=== PATIENT | female | born 1965 | race American Indian/Alaskan Native ===

== ENCOUNTER 2018-07-15 10:58 | Emergency (ER) | payer MEDICAID ==
[2018-07-15 11:31] VITALS: BP 126/78
--- NOTE | 2018-07-15 13:06 | Emergency Department Report ---
ED Upper Extremity Inj HPI - General Chief Complaint: Extremity Injury, Upper Stated Complaint: PAIN IN SHOULDER/RIGHT ARM NUMB Time Seen by Provider: 07/15/18 12:56 Source: patient Mode of arrival: Ambulatory Limitations: No Limitations - History of Present Illness Initial Comments: 53-year-old female presents to ED with complaints of right upper extremity pain. Patient states pain started 4 days ago. States pain is in right shoulder and radiates down the arm. Pain is worse with coughing or rightward rotation of neck. Patient reports intermittent associated paresthesias. Patient has history of CVA in the past. States has baseline weakness on the right side due to CVA. Patient ambulates with walker. MD Complaint: Injury to:: right, shoulder, arm -: days(s) (4) Improves With: immobilization Worsens With: movement of extremity, other (rotation of neck) Context: other (none) Associated Symptoms: numbness - Related Data Home Medications Medication Instructions Recorded Confirmed Last Taken buPROPion XL [Wellbutrin XL] 300 mg PO QAM 05/17/18 05/17/18 Unknown Previous Rx's Medication Instructions Recorded Last Taken Type Aspirin EC [Aspirin Enteric Coated 81 mg PO DAILY #30 tablet 05/19/18 Unknown Rx TAB] Lisinopril [Zestril TAB] 40 mg PO QDAY #30 tablet 05/19/18 Unknown Rx clonazePAM [Klonopin] 1 mg PO BID #30 tablet 05/19/18 Unknown Rx traMADol [Ultram 50 MG tab] 50 mg PO BID PRN tablet 05/19/18 Unknown Rx traZODone [Desyrel] 1 - 2 tab PO QHS #30 tablet 05/19/18 Unknown Rx traZODone [Desyrel] 50 mg PO QHS tablet 05/19/18 Unknown Rx Naproxen [Naprosyn] 500 mg PO BID PRN #20 tablet 07/15/18 Unknown Rx methOCARBAMOL [Robaxin TAB] 500 mg PO Q6H PRN #20 tablet 07/15/18 Unknown Rx predniSONE [Prednisone] 50 mg PO DAILY #5 tablet 07/15/18 Unknown Rx Allergies Allergy/AdvReac Type Severity Reaction Status Date / Time No Known Allergies Allergy Unverified 05/17/18 10:12 ED Review of Systems ROS: Stated complaint: PAIN IN SHOULDER/RIGHT ARM NUMB Other details as noted in HPI Comment: All other systems reviewed and negative Constitutional: chills, fever Cardiovascular: denies: chest pain Musculoskeletal: arthralgia, other (denies neck pain) Neurological: paresthesias ED Past Medical Hx - Past Medical History Hx Hypertension: Yes Hx CVA: Yes ([id number] weakness,uses a walker) Hx Congestive Heart Failure: No Hx Diabetes: No Hx Asthma: No Hx COPD: No - Surgical History Hx Open Heart Surgery: Yes (2 stents) - Social History Smoking Status: Current Every Day Smoker Substance Use Type: None - Medications Home Medications: Home Medications Medication Instructions Recorded Confirmed Last Taken Type buPROPion XL [Wellbutrin XL] 300 mg PO QAM 05/17/18 05/17/18 Unknown History Aspirin EC [Aspirin Enteric Coated 81 mg PO DAILY #30 tablet 05/19/18 Unknown Rx TAB] Lisinopril [Zestril TAB] 40 mg PO QDAY #30 tablet 05/19/18 Unknown Rx clonazePAM [Klonopin] 1 mg PO BID #30 tablet 05/19/18 Unknown Rx traMADol [Ultram 50 MG tab] 50 mg PO BID PRN tablet 05/19/18 Unknown Rx traZODone [Desyrel] 1 - 2 tab PO QHS #30 tablet 05/19/18 Unknown Rx traZODone [Desyrel] 50 mg PO QHS tablet 05/19/18 Unknown Rx Naproxen [Naprosyn] 500 mg PO BID PRN #20 tablet 07/15/18 Unknown Rx methOCARBAMOL [Robaxin TAB] 500 mg PO Q6H PRN #20 tablet 07/15/18 Unknown Rx predniSONE [Prednisone] 50 mg PO DAILY #5 tablet 07/15/18 Unknown Rx ED Physical Exam - General Limitations: No Limitations General appearance: alert, in no apparent distress - Head Head exam: Present: atraumatic, normocephalic - Eye Eye exam: Present: normal appearance - ENT ENT exam: Present: mucous membranes moist - Neck Neck exam: Present: normal inspection, full ROM. Absent: tenderness - Respiratory Respiratory exam: Present: normal lung sounds bilaterally. Absent: respiratory distress - Cardiovascular Cardiovascular Exam: Present: regular rate, normal rhythm - GI/Abdominal GI/Abdominal exam: Present: soft. 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; no sensory deficit to light touch; no swelling present) - Neurological Exam Neurological exam: Present: alert, altered, other (strength in RUE 5/5; no sensory deficit to light touch) - Psychiatric Psychiatric exam: Present: normal affect, normal mood - Skin Skin exam: Present: warm, dry, intact ED Course Vital Signs 07/15/18 11:27 Temperature 97.9 F Pulse Rate 84 Respiratory 16 Rate Blood Pressure 126/78 O2 Sat by Pulse 99 Oximetry ED Medical Decision Making - Medical Decision Making 53-year-old female with 4 day history of right shoulder pain with associated intermittent numbness and tingling. Patient reports pain is worse with coughing or rotation of neck. Likely cervical radiculopathy. Will try anti- inflammatory steroid and muscle relaxer therapy. Patient will be referred to orthopedist. Patient has been given return precautions. - Differential Diagnosis rotator cuff tendinitis; cervical radiculopathy; arthritis Critical care attestation.: If time is entered above; I have spent that time in minutes in the direct care of this critically ill patient, excluding procedure time. ED Disposition Clinical Impression: Cervical radiculopathy Disposition: DC-01 TO HOME OR SELFCARE Is pt being admited?: No Condition: Stable Instructions: Cervical Radiculopathy (ED) Prescriptions: methOCARBAMOL [Robaxin TAB] 500 mg PO Q6H PRN #20 tablet PRN Reason: Pain, Moderate (4-6) Naproxen [Naprosyn] 500 mg PO BID PRN #20 tablet PRN Reason: Pain, Moderate (4-6) predniSONE [Prednisone] 50 mg PO DAILY #5 tablet Referrals: PRIMARY CARE, [Primary Care Provider] - 3-5 Days CHRISTIAN BLANCHARD MD [Staff Physician] - 3-5 Days
== END 2018-07-15 13:21 | disposition home or self-care (01) ==
LOC: ED 10:58
DX: M54.12 Radiculopathy, cervical region (principal); M25.511 Pain in right shoulder; I10 Essential (primary) hypertension; F17.200 Nicotine dependence, unspecified, uncomplicated; Z79.82 Long term (current) use of aspirin
CPT/HCPCS: 93005; 93010; 99282

== ENCOUNTER 2019-05-19 09:58 | Emergency (ER) | payer MEDICAID ==
[2019-05-19 10:13] VITALS: BP 152/91
--- NOTE | 2019-05-19 10:30 | XRay Report ---
RIGHT HAND 3 VIEWS INDICATION: right hand pain and swelling. COMPARISON: No relevant prior imaging study available. FINDINGS: No acute, displaced fracture or dislocation is seen. There are no significant degenerative changes. N o significant soft tissue swelling. IMPRESSION: 1. No acute findings. Signer Name: Riley Pérez MD Signed: 05/19/2019 10:25 AM Workstation Name: [id number]
--- NOTE | 2019-05-19 11:07 | Emergency Department Report ---
HPI - General Chief Complaint: Extremity Injury, Upper Time Seen by Provider: 05/19/19 10:33 - HPI HPI: Pt is a very pleasant 54-year-old comes to the ER complaining of right hand swelling and tingling. She's had it off and on for 2 months. She states that she has a history of carpal tunnel. She was unable to get in with her primary care physician and does not see her neurologist until the end of the month. Patient is currently taking her psychiatric and blood pressure medicines but is unable to recall the name. Patient denies any chest pain shortness of breath or other symptoms. She denies any trauma. She does have full range of motion of the arm. ED Past Medical Hx - Past Medical History Previous Medical History?: Yes Hx Hypertension: Yes Hx CVA: Yes ([id number] weakness,uses a walker) Hx Congestive Heart Failure: No Hx Diabetes: No Hx Asthma: No Hx COPD: No Additional medical history: carpel tunnel; dysphonia; mental illness - Surgical History Past Surgical History?: Yes Hx Open Heart Surgery: Yes (2 stents) - Social History Smoking Status: Current Every Day Smoker Substance Use Type: None - Medications Home Medications: Home Medications Medication Instructions Recorded Confirmed Last Taken Type buPROPion XL [Wellbutrin XL] 300 mg PO QAM 05/17/18 05/17/18 Unknown History Aspirin EC 81 mg PO DAILY #30 tablet 05/19/18 Unknown Rx Lisinopril [Zestril TAB] 40 mg PO QDAY #30 tablet 05/19/18 Unknown Rx clonazePAM [Klonopin] 1 mg PO BID #30 tablet 05/19/18 Unknown Rx traZODone [Desyrel] 1 - 2 tab PO QHS #30 tablet 05/19/18 Unknown Rx methOCARBAMOL [Robaxin TAB] 500 mg PO Q6H PRN #20 tablet 07/15/18 Unknown Rx predniSONE [Deltasone] 20 mg PO DAILY #5 tablet 05/19/19 Unknown Rx ED Review of Systems ROS: Stated complaint: RT SIDE HAND SWELLING/PAIN Other details as noted in HPI Comment: All other systems reviewed and negative Physical Exam - Physical Exam Vital Signs: Vital Signs 05/19/19 10:02 Temperature 98.2 F Pulse Rate 102 H Respiratory 15 Rate Blood Pressure 152/91 [Left] O2 Sat by Pulse 100 Oximetry Physical Exam: WDWN patient in NAD VS per RN flow sheet Alert and oriented to person, place and time. neuro intact. no pronator drift. CN intact. S1-S2. No S3 or S4. HR 100 on exam. No systolic or diastolic murmur. No JVD. No pitting edema. Lungs clear to auscultation bilaterally anteriorly and posteriorly. Abdomen soft nontender bowel soundsx4 Moves all extremities well. full ROM of hand and wrist. pos tinels; Mood and affect appropriate. ED Course Vital Signs 05/19/19 10:02 Temperature 98.2 F Pulse Rate 102 H Respiratory 15 Rate Blood Pressure 152/91 [Left] O2 Sat by Pulse 100 Oximetry ED Medical Decision Making - Radiology Data Radiology results: report reviewed, image reviewed - Medical Decision Making no trauma hx carpel tunnel xray neg has neuro appnt end of month full rom and neurovasc intact. Vital Signs 05/19/19 10:02 Temperature 98.2 F Pulse Rate 102 H Respiratory 15 Rate Blood Pressure 152/91 [Left] O2 Sat by Pulse 100 Oximetry - Differential Diagnosis ro fx Critical care attestation.: If time is entered above; I have spent that time in minutes in the direct care of this critically ill patient, excluding procedure time. ED Disposition Clinical Impression: Acute carpal tunnel syndrome of right wrist Disposition: DC- TO HOME OR SELFCARE Is pt being admited?: No Does the pt Need Aspirin: No Condition: Stable Instructions: Tendinitis (ED) Additional Instructions: DIET TOLERATED MEDS ORDERED TODAY IN ER FOLLOW INSTRUCTIONS ON THE BOTTLE FOLLOW UP PCP WITHIN 48 HOURS TO ENSURE YOU ARE GETTING BETTER ACTIVITY TOLERATED MOTRIN OR TYLENOL FOR PAIN OR FEVER RETURN TO THE ER FOR WORSENING SYMPTOMS NOT RELIEVED BY YOUR MEDICATIONS. follow up with your neuro MD as you have planned I've also given you referral to a ortho MD Referrals: CHRISTIAN BLANCHARD MD [Staff Physician] - 3-5 Days Time of Disposition: 11:05
== END 2019-05-19 11:21 | disposition home or self-care (01) ==
LOC: ED 09:58
DX: G56.01 Carpal tunnel syndrome, right upper limb (principal); I10 Essential (primary) hypertension; F17.200 Nicotine dependence, unspecified, uncomplicated; Z86.73 Personal history of transient ischemic attack (TIA), and cerebral infarction without residual deficits; Z95.1 Presence of aortocoronary bypass graft; Z79.82 Long term (current) use of aspirin; Z79.899 Other long term (current) drug therapy
CPT/HCPCS: 99283

== ENCOUNTER 2020-01-31 21:48 | Emergency (ER) | payer MEDICAID ==
--- NOTE | 2020-01-31 22:38 | XRay Report ---
CHEST 2 VIEWS INDICATION / CLINICAL INFORMATION: Cough for 3 weeks. COMPARISON: 05/17/18. FINDINGS: SUPPORT DEVICES: None. HEART / MEDIASTINUM: Median sternotomy. Normal heart size and pulmonary vasculature. LUNGS / PLEURA: No significant pulmonary or pleural abnormality. No pneumothorax. ADDITIONAL FINDINGS: No significant additional findings. IMPRESSION: No acute abnormality or significant change. Signer Name: Gato Rojas MD Signed: 01/31/2020 10:33 PM Workstation Name: [id number]
[2020-02-01 01:58] VITALS: BP 150/65
[2020-02-01] MEDS ORDERED: KETOROLAC 60 MG/2 ML INJ IM ONE (02:00)
--- NOTE | 2020-02-01 02:00 | Emergency Department Report ---
HPI - General Chief Complaint: Upper Respiratory Infection Time Seen by Provider: 02/01/20 01:18 - HPI HPI: This is a 54-year-old female here report that she is having coughing for 3 weeks. She said she went to her primary care doctor and she was told that she was coughing because of lisinopril. She says she was taken off lisinopril and started on another medication cough is getting better but because she was coughing so much she is having rib discomfort with coughing. Denies any chest pain or shortness of breath. Denies any fever or chills. Denies any nausea vomiting or diarrhea. Denies any abdominal pain. Denies any contact with individuals with cough, fever, congestion, diarrhea. Pain is 5 out of 10 and associated with coughing. She said her coughing has improved but because she was coughing so much now when she coughs it hurts. Patient has a history of cardiac stent 18 years ago. She said her pain is not related to her heart and she does not want to be checked. ED Past Medical Hx - Past Medical History Previous Medical History?: Yes Hx Hypertension: Yes Hx CVA: Yes ([id number] weakness,uses a walker) Hx Congestive Heart Failure: No Hx Diabetes: No Hx Asthma: No Hx COPD: No Additional medical history: carpel tunnel; dysphonia; mental illness - Surgical History Past Surgical History?: Yes Hx Open Heart Surgery: Yes (2 stents) - Family History Family history: hypertension - Social History Smoking Status: Current Some Day Smoker Substance Use Type: None - Medications Home Medications: Home Medications Medication Instructions Recorded Confirmed Last Taken Type buPROPion XL [Wellbutrin XL] 300 mg PO QAM 05/17/18 05/17/18 Unknown History Aspirin EC [Halfprin EC] 81 mg PO DAILY #30 tablet 05/19/18 Unknown Rx clonazePAM [Klonopin] 1 mg PO BID #30 tablet 05/19/18 Unknown Rx lisinopriL [Zestril TAB] 40 mg PO QDAY #30 tablet 05/19/18 Unknown Rx traZODone [Desyrel] 1 - 2 tab PO QHS #30 tablet 05/19/18 Unknown Rx methOCARBAMOL [Robaxin TAB] 500 mg PO Q6H PRN #20 tablet 07/15/18 Unknown Rx predniSONE [Deltasone] 20 mg PO DAILY #5 tablet 05/19/19 Unknown Rx Benzonatate [Tessalon Perles] 100 mg PO Q8HR PRN #12 capsule 02/01/20 Unknown Rx Cetirizine HCl [ZyrTEC] 10 mg PO QAM 10 Days #10 capsule 02/01/20 Unknown Rx ED Review of Systems ROS: Stated complaint: COUGH 3WKS Other details as noted in HPI Constitutional: denies: chills, fever, weakness ENT: denies: ear pain, throat pain, congestion Respiratory: cough. denies: shortness of breath, SOB with exertion, SOB at rest, stridor, wheezing Cardiovascular: other (Pain around rib cage with coughing). denies: palpitations, dyspnea on exertion, edema, syncope Gastrointestinal: denies: abdominal pain, nausea, vomiting Musculoskeletal: arthralgia (Rib). denies: back pain, joint swelling, myalgia Skin: denies: rash Neurological: denies: headache, numbness, paresthesias, abnormal gait, vertigo Physical Exam - Physical Exam Vital Signs: Vital Signs 01/31/20 02/01/20 21:52 01:56 Temperature 98.5 F 98.3 F Pulse Rate 54 L 54 L Respiratory 20 18 Rate Blood Pressure 151/78 150/65 O2 Sat by Pulse 98 100 Oximetry General: This is a 54-year-old female well-nourished well-developed in no acute distress. Physical Exam: Head: Normocephalic atraumatic. Mouth: Oral mucosa moist, tongue is normal, uvula is midline, no WAREHOUSE ASSISTANT or drooling, oral airways patent and uvula is Nose: Nasal mucosa pale and boggy with clear drainage. Ears: Bilateral middle ear with effusion, bilateral EAC normal exam. No tympanic membrane tenderness. Lungs: Clear to auscultated bilaterally, no rhonchi wheezes or rales. No use of accessory muscles. Neck: Supple, no tracheal deviation. No C-spine tenderness and full range of motion. Negative stridor and negative crepitus CV: S1, S2. Regular rate Abdomen: Nontender to palpate in all quadrants, normal bowel sounds in all quadrants. No distention. Eyes: Bilateral pupils equal and reactive to light, conjunctival injection or icterus. Bilateral EOM intact and normal accommodation. Lids are normal. No swelling noted. Skin: Clean dry and intact, no rash no lesions Extremity: No cce. + 2 pulses in all extremities, no neurovascular compromise. Mood: Normal mood and behavior Neurological: No focal neurological deficit. She is able to ambulate without any difficulties. Normal gait, speech is clear fluid, she is alert and oriented 3, no motor or sensory deficits. Normal strength all extremities and normal reflexes. Negative Romberg and negative pronator drift Back: Nontender to palpate to vertebral spine from C-spine to L-spine including sacral area. No paraspinal tenderness and no CVA tenderness. No rash noted. ED Course Vital Signs 01/31/20 02/01/20 21:52 01:56 Temperature 98.5 F 98.3 F Pulse Rate 54 L 54 L Respiratory 20 18 Rate Blood Pressure 151/78 150/65 O2 Sat by Pulse 98 100 Oximetry - Reevaluation(s) Reevaluation #1: 02/01/20 02:19 Patient given Toradol 60 mg IM for pain with relief. Patient refused cardiac work-up and said is not her heart. She refuses EKG and lab work. Please see signed AMA ED Medical Decision Making - Radiology Data Radiology results: report reviewed Chest x-ray dictated by radiologist and report reviewed by myself. Please see details. Findings [facility] [address] [place] [address] XRay Report Signed Patient: JANNY HALL MR#: [id number] : 1965 Acct:[id number] Age/Sex: 54 / F ADM Date: 01/31/20 Loc: ED Attending Dr: Ordering Physician: IRINEO REYNA Date of Service: 01/31/20 Procedure(s): XR chest routine 2V Accession Number(s): [id number] cc: IRINEO REYNA Fluoro Time In Minutes: CHEST 2 VIEWS INDICATION / CLINICAL INFORMATION: Cough for 3 weeks. COMPARISON: 05/17/18. FINDINGS: SUPPORT DEVICES: None. HEART / MEDIASTINUM: Median sternotomy. Normal heart size and pulmonary vasculature. LUNGS / PLEURA: No significant pulmonary or pleural abnormality. No pneumothorax. ADDITIONAL FINDINGS: No significant additional findings. IMPRESSION: No acute abnormality or significant change. Signer Name: Gato Rojas MD Signed: 01/31/2020 10:33 PM Workstation Name: [id number] Transcribed By: RT Dictated By: Gato Rojas MD Electronically Authenticated By: Gato Rojas MD Signed Date/Time: 01/31/202232 DD/ 31 TD/TT: - Medical Decision Making 54-year-old female here report that she has been having cough for 3 weeks and went to her primary care and her primary care told her that it was related to lisinopril which was switched and she said her cough is improved but because she has been coughing so much she is having rib pain. Patient has a history of cardiac stents and CVA. She said her stent was placed 18 years ago and pain is not related to her heart. I wanted to do EKG and cardiac labs but patient refused. Please see signed AMA in chart. Chest x-ray two-view dictated by radiologist and report reviewed by myself with no acute findings. Patient with signs of allergic rhinitis and says she has allergies. Her lungs are clear and vital signs are stable she is afebrile. Patient had no contact with individuals that has upper respiratory with cough and congestion, fever and or chills or diarrhea. She was given Toradol IM in emergency room which relieved her pain. I discussed her diagnosis and treatment plan and I discussed with patient that she needs to follow-up with her primary care on 02/02/2020 and also cardiology to call on Sunday to schedule an appointment and she voiced understanding. Patient discharged home with prescription for Zyrtec and Tessalon Perle - Differential Diagnosis ACS, PNA, bronchitis, viral syndrome, allergic rhinitis Critical care attestation.: If time is entered above; I have spent that time in minutes in the direct care of this critically ill patient, excluding procedure time. ED Disposition Clinical Impression: Cough in adult Allergic rhinitis Qualifiers: Allergic rhinitis trigger: unspecified Allergic rhinitis seasonality: unspecified Qualified Code(s): J30.9 - Allergic rhinitis, unspecified Disposition: DC-01 TO HOME OR SELFCARE Is pt being admited?: No Does the pt Need Aspirin: No Condition: Stable Instructions: Allergic Rhinitis (ED), Acute Cough (ED) Additional Instructions: Please follow-up with your primary care physician and also see referral to die mechanic. If your condition worsens, return to the emergency room. Take medication as prescribed See discharge instruction given on coronavirus signs and symptoms. Referrals: PHIL NGUYEN MD [Primary Care Provider] - 02/02/20 STERLING WALDRON MD [Staff Physician] - 02/02/20 Forms: AMA Form
== END 2020-02-01 02:40 | disposition home or self-care (01) ==
LOC: ED 21:48
DX: R05 Cough (principal); R07.81 Pleurodynia; J30.9 Allergic rhinitis, unspecified; I10 Essential (primary) hypertension; R49.0 Dysphonia; F17.200 Nicotine dependence, unspecified, uncomplicated; G56.00 Carpal tunnel syndrome, unspecified upper limb; Z86.73 Personal history of transient ischemic attack (TIA), and cerebral infarction without residual deficits; Z98.890 Other specified postprocedural states; Z79.899 Other long term (current) drug therapy
CPT/HCPCS: 71046; 96372; 99283; J1885

== ENCOUNTER 2020-09-10 12:32 | Emergency (ER) | payer MEDICAID ==
[2020-09-10] MEDS ORDERED: MORPHINE 4 MG/1 ML INJ IV ONE (13:52)
[2020-09-10] MEDS ORDERED: ONDANSETRON 4 MG/2 ML INJ IV ONE (13:52)
[2020-09-10] MEDS ORDERED: MECLIZINE 25 MG TAB PO ONE (13:54)
--- NOTE | 2020-09-10 13:55 | Cat Scan Report ---
CT HEAD WITHOUT CONTRAST INDICATION / CLINICAL INFORMATION: Dizziness and headache. TECHNIQUE: Axial imaging performed from the skull apex through the skull base without the use of cont rast. Sagittal and coronal reformatted images. All CT scans at this location are performed using CT dose reduction for ALARA by means of automated exposure control. COMPARISON: None available. FINDINGS: CEREBRAL PARENCHYMA: No acute parenchymal abnormality or territorial infarct. Chronic focal infarct i n the left subinsular region measures 1.2 x 0.4 cm. The remaining brain parenchyma demonstrates prema l density. HEMORRHAGE: None. EXTRA-AXIAL SPACES: Normal in size and morphology for the patient's age. VENTRICULAR SYSTEM: Normal in size and morphology for the patient's age. MIDLINE SHIFT OR HERNIATION: None. CEREBELLUM / BRAINSTEM: No significant abnormality. CALVARIUM: No significant abnormality. ORBITS: Normal as visualized. PARANASAL SINUSES / MASTOID AIR CELLS: Large mucous retention cyst is identified in the right maxilla ry sinus. The remaining sinuses are clear. SOFT TISSUES of HEAD: No significant abnormality. ADDITIONAL FINDINGS: None. IMPRESSION: No acute intracranial abnormality. Signer Name: Jony Cardoso Jr, MD Signed: 09/10/2020 1:50 PM Workstation Name: [id number]
[2020-09-10] MEDS ORDERED: KETOROLAC 30 MG/1 ML INJ IV ONE (13:58)
--- NOTE | 2020-09-10 13:59 | Emergency Department Report ---
ED Headache HPI - General Chief Complaint: Dizziness Stated Complaint: DIZZY/HEAD/HTN Time Seen by Provider: 09/10/20 13:38 Source: patient Exam Limitations: no limitations - History of Present Illness Initial Comments: 55-year old female with a past medical history of CVA with residual right-sided walker, diabetes, mental illness, CAD with stent x 2 presents to the hospital wi th complaints of headache and dizziness since yesterday. Symptoms worsen upon waking this morning. She describes it as a room spinning sensation and thinks her symptoms are secondary to high blood pressure. At one time she reports a blood pressure of 181/102 with associated blurred vision and worsening frontal headache. She does complain of light sensitivity. She denies nausea, vomiting, neck stiffness, worsening of focal weakness, or focal numbness. Patient is compliant with her BP medications and aspirin with last dose this morning. She denies history of headache syndromes or head trauma. Allergies/Adverse Reactions: Allergies No Known Allergies Allergy (Unverified 05/17/18 10:12) Home Medications: Ambulatory Orders buPROPion XL [Wellbutrin XL] 300 mg PO QAM 05/17/18 Aspirin EC [Halfprin EC] 81 mg PO DAILY #30 tablet 05/19/18 clonazePAM [Klonopin] 1 mg PO BID #30 tablet 05/19/18 lisinopriL [Zestril TAB] 40 mg PO QDAY #30 tablet 05/19/18 traZODone [Desyrel] 1 - 2 tab PO QHS #30 tablet 05/19/18 methOCARBAMOL [Robaxin TAB] 500 mg PO Q6H PRN #20 tablet 07/15/18 predniSONE [Deltasone] 20 mg PO DAILY #5 tablet 05/19/19 Benzonatate [Tessalon Perles] 100 mg PO Q8HR PRN #12 capsule 02/01/20 Cetirizine HCl [ZyrTEC] 10 mg PO QAM 10 Days #10 capsule 02/01/20 Butalb/Acetamin/Caff 50-325-40 [Fioricet 50-325-40] 1 tab PO Q6HR PRN #15 tab 09/10/20 Ibuprofen [Motrin] 800 mg PO Q8HR PRN #20 tablet 09/10/20 Meclizine [Antivert] 25 mg PO TID PRN #20 tablet 09/10/20 Ondansetron [Zofran Odt] 4 mg PO Q8HR #14 tab.rapdis 09/10/20 ED Review of Systems ROS: Stated complaint: DIZZY/HEAD/HTN Other details as noted in HPI Comment: All other systems reviewed and negative ED Past Medical Hx - Past Medical History Hx Hypertension: Yes Hx CVA: Yes ([id number],uses a walker) Hx Congestive Heart Failure: No Hx Diabetes: No Hx Asthma: No Hx COPD: No Additional medical history: carpel tunnel; dysphonia; mental illness - Surgical History Hx Open Heart Surgery: Yes (2 stents) - Social History Smoking Status: Never Smoker - Medications Home Medications: Home Medications Medication Instructions Recorded Confirmed Last Taken Type buPROPion XL [Wellbutrin XL] 300 mg PO QAM 05/17/18 05/17/18 Unknown History Aspirin EC [Halfprin EC] 81 mg PO DAILY #30 tablet 05/19/18 Unknown Rx clonazePAM [Klonopin] 1 mg PO BID #30 tablet 05/19/18 Unknown Rx lisinopriL [Zestril TAB] 40 mg PO QDAY #30 tablet 05/19/18 Unknown Rx traZODone [Desyrel] 1 - 2 tab PO QHS #30 tablet 05/19/18 Unknown Rx methOCARBAMOL [Robaxin TAB] 500 mg PO Q6H PRN #20 tablet 07/15/18 Unknown Rx predniSONE [Deltasone] 20 mg PO DAILY #5 tablet 05/19/19 Unknown Rx Benzonatate [Tessalon Perles] 100 mg PO Q8HR PRN #12 capsule 02/01/20 Unknown Rx Cetirizine HCl [ZyrTEC] 10 mg PO QAM 10 Days #10 capsule 02/01/20 Unknown Rx Butalb/Acetamin/Caff 50-325-40 1 tab PO Q6HR PRN #15 tab 09/10/20 Unknown Rx [Fioricet 50-325-40] Ibuprofen [Motrin] 800 mg PO Q8HR PRN #20 tablet 09/10/20 Unknown Rx Meclizine [Antivert] 25 mg PO TID PRN #20 tablet 09/10/20 Unknown Rx Ondansetron [Zofran Odt] 4 mg PO Q8HR #14 tab.rapdis 09/10/20 Unknown Rx ED Physical Exam - General Limitations: No Limitations - Other Other exam information: General: No acute distress Head: Atraumatic Eyes: normal appearance ENT: Moist mucous membranes Neck: Normal appearance, no midline tenderness Chest: Clear to auscultation bilaterally CV: Regular rate and rhythm Abdomen: Soft, normal bowel sounds, nontender, nondistended, no rebound or guarding Back: Normal inspection Extremity: Normal inspection, full range of motion Neuro: Alert O x 3, no facial asymmetry, speech clear, 4+/5 right upper and right lower extremity strength, 5/5 left upper and lower extremity strength, [id number] function intact Psych: Appropriate behavior Skin: No rash ED Course Vital Signs 09/10/20 09/10/20 09/10/20 12:48 13:00 15:30 Temperature 98.2 F Pulse Rate 70 60 56 L Respiratory 18 18 18 Rate Blood Pressure 151/78 Blood Pressure 152/71 150/75 [Left] O2 Sat by Pulse 100 99 97 Oximetry ED Medical Decision Making - Lab Data Result diagrams: 09/10/20 13:59 09/10/20 13:59 Lab Results 09/10/20 09/10/20 Range/Units 13:59 13:59 WBC 6.6 (4.5-11.0) K/mm3 RBC 4.70 (3.65-5.03) M/mm3 Hgb 14.9 H (10.1-14.3) gm/dl Hct 44.9 H (30.3-42.9) % MCV 95 (79-97) fl MCH 32 (28-32) pg MCHC 33 (30-34) % RDW 13.7 (13.2-15.2) % Plt Count 218 (140-440) K/mm3 Lymph % (Auto) 46.1 H (13.4-35.0) % [place] % (Auto) 6.3 (0.0-7.3) % Eos % (Auto) 1.8 (0.0-4.3) % Baso % (Auto) 1.1 (0.0-1.8) % Lymph # (Auto) 3.0 (1.2-5.4) K/mm3 [place] # (Auto) 0.4 (0.0-0.8) K/mm3 Eos # (Auto) 0.1 (0.0-0.4) K/mm3 Baso # (Auto) 0.1 (0.0-0.1) K/mm3 Seg Neutrophils % 44.7 (40.0-70.0) % Seg Neutrophils # 2.9 (1.8-7.7) K/mm3 Sodium 140 (137-145) mmol/L Potassium 4.3 (3.6-5.0) mmol/L Chloride 104.6 (98-107) mmol/L Carbon Dioxide 25 (22-30) mmol/L Anion Gap 15 mmol/L BUN 8 (7-17) mg/dL Creatinine 0.5 L (0.6-1.2) mg/dL Estimated GFR > 60 ml/min BUN/Creatinine Ratio 16 % Glucose 84 (65-100) mg/dL Calcium 10.6 H (8.4-10.2) mg/dL Magnesium 2.00 (1.7-2.3) mg/dL Total Bilirubin 0.50 (0.1-1.2) mg/dL AST 18 (5-40) units/L ALT 18 (7-56) units/L Alkaline Phosphatase 133 H (35-129) units/L Troponin T < 0.010 (0.00-0.029) ng/mL Total Protein 7.5 (6.3-8.2) g/dL Albumin 4.3 (3.9-5) g/dL Albumin/Globulin Ratio 1.3 % - EKG Data -: EKG Interpreted by Ms EKG shows normal: sinus rhythm, ST-T waves (ant lat t inv) Rate: normal - EKG Data When compared to previous EKG there are: no significant change - Radiology Data Radiology results: report reviewed CT HEAD WITHOUT CONTRAST INDICATION / CLINICAL INFORMATION: Dizziness and headache. TECHNIQUE: Axial imaging performed from the skull apex through the skull base without the use of contrast. Sagittal and coronal reformatted images. All CT scans at this location are performed using CT dose reduction for ALARA by means of automated exposure control. COMPARISON: None available. FINDINGS: CEREBRAL PARENCHYMA: No acute parenchymal abnormality or territorial infarct. Chronic focal infarct in the left subinsular region measures 1.2 x 0.4 cm. The remaining brain parenchyma demonstrates normal density. HEMORRHAGE: None. EXTRA-AXIAL SPACES: Normal in size and morphology for the patient's age. VENTRICULAR SYSTEM: Normal in size and morphology for the patient's age. MIDLINE SHIFT OR HERNIATION: None. CEREBELLUM / BRAINSTEM: No significant abnormality. CALVARIUM: No significant abnormality. ORBITS: Normal as visualized. PARANASAL SINUSES / MASTOID AIR CELLS: Large mucous retention cyst is identified in the right maxillary sinus. The remaining sinuses are clear. SOFT TISSUES of HEAD: No significant abnormality. ADDITIONAL FINDINGS: None. IMPRESSION: No acute intracranial abnormality. - Medical Decision Making Patient treated with morphine, Toradol, Zofran, and meclizine in the ED with improvement. CT head and labs unremarkable. Blood pressure mildly elevated but not significant. No signs of hypertensive emergency. No new neurologic deficit identified on exam. Patient be discharged with medications for headache, nausea, and possible vertigo Critical Care Time: No Critical care attestation.: If time is entered above; I have spent that time in minutes in the direct care of this critically ill patient, excluding procedure time. ED Disposition Clinical Impression: Dizziness, Headache, HTN (hypertension) Disposition: TO HOME OR SELFCARE Is pt being admited?: No Does the pt Need Aspirin: No Condition: Stable Instructions: Hypertension (ED), Dizziness, Managing Your Hypertension Additional Instructions: Take the medication as prescribed. Follow-up with your doctor or doctor/clinic provided. Return if symptoms worsen as indicated by your discharge instructions. Prescriptions: Meclizine [Antivert] 25 mg PO TID PRN #20 tablet PRN Reason: Vertigo Butalb/Acetamin/Caff 50-325-40 [Fioricet 50-325-40] 1 tab PO Q6HR PRN #15 tab PRN Reason: Headache Ibuprofen [Motrin] 800 mg PO Q8HR PRN #20 tablet PRN Reason: Pain , Severe (7-10) Ondansetron [Zofran Odt] 4 mg PO Q8HR #14 tab.rapdis Referrals: PRIMARY CARE, [Primary Care Provider] - 3-5 Days BETH DENT MD [Staff Physician] - 3-5 Days (Neurologist) Time of Disposition: 16:07
[2020-09-10 14:49] LABS: Basophils # (Auto) 0.1 K/mm3 (0.0-0.1); Basophils % (Auto) 1.1 % (0.0-1.8); Eosinophils # (Auto) 0.1 K/mm3 (0.0-0.4); Eosinophils % (Auto) 1.8 % (0.0-4.3); Hematocrit 44.9 % (30.3-42.9); Hemoglobin 14.9 gm/dl (10.1-14.3); Lymphocytes % (Auto) 46.1 % (13.4-35.0); Mean Corpuscular HGB Conc 33 % (30-34); Mean Corpuscular Volume 95 fl (79-97); Monocytes # (Auto) 0.4 K/mm3 (0.0-0.8); Monocytes % (Auto) 6.3 % (0.0-7.3); Platelet Count 218 K/mm3 (140-440); Red Cell Distribution Width 13.7 % (13.2-15.2)
[2020-09-10 15:08] LABS: Alanine Aminotransferase 18 units/L (7-56); Albumin 4.3 g/dL (3.9-5); Blood Urea Nitrogen 8 mg/dL (7-17); Calcium 10.6 mg/dL (8.4-10.2); Hemolysis Index 16
[2020-09-10 15:09] LABS: BUN/Creatinine Ratio 16
[2020-09-10 17:42] VITALS: BP 157/70
== END 2020-09-10 17:02 | disposition home or self-care (01) ==
LOC: ED 12:32
DX: R42 Dizziness and giddiness (principal); R51.9 Headache, unspecified; I10 Essential (primary) hypertension; Z86.73 Personal history of transient ischemic attack (TIA), and cerebral infarction without residual deficits; Z98.890 Other specified postprocedural states; Z79.1 Long term (current) use of non-steroidal anti-inflammatories (NSAID); Z79.899 Other long term (current) drug therapy
CPT/HCPCS: 36415; 70450; 80053; 83735; 84484; 85025; 93005; 96374; 96375; 99284; J1885; J2270; J2405